=== PATIENT | female | born 1970 | race African-American/Black ===

== ENCOUNTER 2017-03-05 21:46 | Observation (INO) | payer BC ==
[~2017-03-05] VITALS: Ht 167.6 cm; Wt 100.4 kg
[2017-03-05] MEDS: SODIUM CHLOR 0.9% 1000 ML INJ 1,000 ML IV SCH (20:12)
[2017-03-05] MEDS: SODIUM CHLORIDE 0.9% FLUSH 10 ML FLUSH IV FLUSH SCH (21:00)
[~2017-03-05 21:46] MED LIST: ACETAMINOPHEN 325 MG TAB PO PRN; BISACODYL 10 MG SUPP RECTAL PRN; BUTA1CAP PO; BUTATAB6 PO; CARA1TAB6 PO; CLON0.2T PO; HYDR-3535 PO; NALOXONE HCL 0.4 MG/ML AMP IV PRN; NORV2.5T PO; PROT40TA PO; SENNOSIDES 8.6 MG TAB PO PRN; TOPA25TA8 PO; ZANA2CAP PO
[2017-03-05] MEDS: HYDROmorphone HCL PF 1 MG/ML VIAL IV PUSH PRN (22:09)
[2017-03-05 22:41] VITALS: BP 166/107; PULSE 72; RESP 16; TEMP 97.7; O2SAT 95
[2017-03-06] MEDS ORDERED: HYDROmorphone HCL PF 1 MG/ML VIAL IV PUSH ONE
[2017-03-06 00:42] VITALS: BP 145/92; PULSE 76; RESP 14; TEMP 98.1; O2SAT 97
[2017-03-06] MEDS: HYDROmorphone HCL PF 1 MG/ML VIAL IV PUSH PRN ×7 (02:07→22:16)
[2017-03-06] MEDS: ONDANSETRON HCL 4 MG/2 ML VIAL IVP PRN ×3 (02:11→22:15)
[2017-03-06 06:02] LABS: HEMATOCRIT 40.2 % (35.0-46.0); HEMO FLAGS DIFF FINAL; MEAN CELL VOLUME 84.4 FL (80.0-100.0); MEAN CORPUSCULAR HEMOGLOBIN 26.9 PG (27.0-34.0); MEAN CORPUSCULAR HGB CONC 31.9 % (32.0-36.0); NEUT % 77.9 % (16.0-70.0); PLATELET COUNT 419 TH/MM3 (150-450); RED BLOOD COUNT 4.76 MIL/MM3 (4.00-5.30); RED CELL DISTRIBUTION WIDTH 16.4 % (11.6-17.2); WHITE BLOOD COUNT 11.3 TH/MM3 (4.0-11.0)
[2017-03-06 06:03] LABS: AUTOMATED NEUTROPHIL # 8.7 TH/MM3 (1.8-7.7); BASOPHIL # 0.1 TH/MM3 (0-0.2); BASOPHIL % 0.5 % (0.0-2.0); LYMPH % 16.7 % (9.0-44.0); LYMPHOCYTE # 1.9 TH/MM3 (1.0-4.8); MONO % 4.9 % (0.0-8.0)
[2017-03-06 06:10] LABS: CHLORIDE 103 MEQ/L (98-107); POTASSIUM 3.6 MEQ/L (3.5-5.1); SODIUM (NA) 137 MEQ/L (136-145)
[2017-03-06] MEDS: SODIUM CHLOR 0.9% 1000 ML INJ 1,000 ML IV SCH ×2 (06:12→07:12)
[2017-03-06 06:15] LABS: ANION GAP 8 MEQ/L (5-15); BICARBONATE 26.2 MEQ/L (21.0-32.0); BLOOD UREA NITROGEN 7 MG/DL (7-18)
[2017-03-06 06:18] LABS: ALT (GPT) 22 U/L (10-53); AST (GOT) 19 U/L (15-37); GLOMERULAR FILTRATION RATE 90 ML/MIN (>89)
[2017-03-06 06:20] LABS: TOTAL BILIRUBIN ADULT 0.6 MG/DL (0.2-1.0)
[2017-03-06 06:21] LABS: ALKALINE PHOSPHATASE 109 U/L (45-117)
[2017-03-06 07:45] VITALS: BP 122/76; PULSE 78; RESP 18; TEMP 97.6; O2SAT 94
[2017-03-06] MEDS: SUCRALFATE 1 GM TAB PO SCH ×3 (07:55→14:36)
--- NOTE | 2017-03-06 07:59 | HHI.HP ---
[facility] Primary Care Physician Non-Staff Admission Diagnosis Diagnoses: Chief Complaint: abdominal razo and vomiting Travel History International Travel<30 Days: No Contact w/Intl Traveler <30 Da: No Traveled to Known Affected Are: No History of Present Illness 46 year old female with second episode for "pancreatitis" for unknown reason. Associated with severe nausea and vomiting and 10/10 abdominal pain which is not radiating. Better with zofran and dilaudid. No fevers and no bloody stool or emesis. Review of Systems Constitutional: DENIES: Diaphoretic episodes, Fatigue, Fever, Weight gain, Weight loss, Chills, Dizziness, Change in appetite, Night Sweats Endocrine: DENIES: Abnorml menstrual pattern, Heat/cold intolerance, Polydipsia , Polyuria, Polyphagia Eyes: DENIES: Blurred vision, Diplopia, Eye inflammation, Eye pain, Vision loss , Photosensitivity, Double Vision Ears, nose, mouth, throat: DENIES: Tinnitus, Hearing loss, Vertigo, Nasal discharge, Oral lesions, Throat pain, Hoarseness, Ear Pain, Running Nose, Epistaxis, Sinus Pain, Toothache, Odynophagia Respiratory: DENIES: Apneas, Cough, Snoring, Wheezing, Hemoptysis, Sputum production, Shortness of breath Cardiovascular: DENIES: Chest pain, Palpitations, Syncope, Dyspnea on Exertion , PND, Lower Extremity Edema, Orthopnea, Claudication Gastrointestinal: COMPLAINS OF: Abdominal pain, Nausea, Vomiting, DENIES: Black stools, Bloody stools, Constipation, Diarrhea, Difficulty Swallowing, Anorexia Genitourinary: DENIES: Abnormal vaginal bleeding, Dysmenorrhea, Dyspareunia, Sexual dysfunction, Urinary frequency, Urinary incontinence, Urgency, Hematuria , Dysuria, Nocturia, Vaginal discharge Musculoskeletal: DENIES: Joint pain, Muscle aches, Stiffness, Joint Swelling, Back pain, Neck pain Integumentary: DENIES: Abnormal pigmentation, Pruritus, Rash, Nail changes, Breast masses, Breast skin changes, Nipple discharge Hematologic/lymphatic: DENIES: Bruising, Lymphadenopathy Immunologic/allergic: DENIES: Eczema, Urticaria Neurologic: DENIES: Abnormal gait, Headache, Localized weakness, Paresthesias, Seizures, Speech Problems, Tremor, Poor Balance Psychiatric: DENIES: Anxiety, Confusion, Mood changes, Depression, Hallucinations, Agitation, Suicidal Ideation, Homicidal Ideation, Delusions Except as stated in HPI: all other systems reviewed are Neg Past Family Social History Past Medical History migraines pancreatitis Past Surgical History c/s GB Left shoulder Reported Medications reviewed in the EMR denies butalbital, lortab, norvasc Allergies: Coded Allergies: morphine (Unverified Allergy, Intermediate, ITCHING AND HIVES, 03/05/17) Active Ordered Medications reviewed in the EMR Family History son with Gastroparesis Mom breast ca father lung cancer Social History no tobacco , no etoh Physical Exam Vital Signs Vital Signs Date Time Temp Pulse Resp B/P Pulse Ox O2 Delivery O2 Flow Rate FiO2 03/06/17 07:45 97.6 78 18 122/76 94 03/06/17 00:42 98.1 76 14 145/92 97 03/05/17 22:41 97.7 72 16 166/107 95 Physical Exam GENERAL: This is a well-nourished, well-developed patient, vomiting SKIN: No rashes, ecchymoses or lesions. Cool and dry. HEAD: Atraumatic. Normocephalic. No temporal or scalp tenderness. EYES: Pupils equal round and reactive. Extraocular motions intact. No scleral icterus. No injection or drainage. ENT: Nose without bleeding, purulent drainage or septal hematoma. Throat without erythema, tonsillar hypertrophy or exudate. Uvula midline. Airway patent. NECK: Trachea midline. No JVD or lymphadenopathy. Supple, nontender, no meningeal signs. CARDIOVASCULAR: Regular rate and rhythm without murmurs, gallops, or rubs. RESPIRATORY: Clear to auscultation. Breath sounds equal bilaterally. No wheezes , rales, or rhonchi. GASTROINTESTINAL: Abdomen soft, diffusely tender, nondistended. hypoactive No hepato-splenomegaly, or palpable masses. No guarding. MUSCULOSKELETAL: Extremities without clubbing, cyanosis, or edema. No joint tenderness, effusion, or edema noted. No calf tenderness. Negative Homans sign bilaterally. NEUROLOGICAL: Awake and alert. Cranial nerves II through XII intact. Motor and sensory grossly within normal limits. Five out of 5 muscle strength in all muscle groups. Normal speech. Laboratory Laboratory Tests Test 03/06/17 05:19 White Blood Count 11.3 Red Blood Count 4.76 Hemoglobin 12.8 Hematocrit 40.2 Mean Corpuscular Volume 84.4 Mean Corpuscular Hemoglobin 26.9 Mean Corpuscular Hemoglobin 31.9 Concent Red Cell Distribution Width 16.4 Platelet Count 419 Mean Platelet Volume 10.0 Neutrophils (%) (Auto) 77.9 Lymphocytes (%) (Auto) 16.7 Monocytes (%) (Auto) 4.9 Eosinophils (%) (Auto) 0.0 Basophils (%) (Auto) 0.5 Neutrophils # (Auto) 8.7 Lymphocytes # (Auto) 1.9 Monocytes # (Auto) 0.6 Eosinophils # (Auto) 0.0 Basophils # (Auto) 0.1 CBC Comment DIFF FINAL Differential Comment Sodium Level 137 Potassium Level 3.6 Chloride Level 103 Carbon Dioxide Level 26.2 Anion Gap 8 Blood Urea Nitrogen 7 Creatinine 0.83 Estimat Glomerular Filtration 90 Rate Random Glucose 103 Calcium Level 9.1 Total Bilirubin 0.6 Aspartate Amino Transf 19 (AST/SGOT) Alanine Aminotransferase 22 (ALT/SGPT) Alkaline Phosphatase 109 Total Protein 8.5 Albumin 3.5 Lipase 410 Result Diagram: 03/06/1751803/06/[address] 03/05 unremarkable Course from [place] Assessment and Plan Problem List: (1) Pancreatitis ICD Code: K85.90 Status: Acute Plan: Cont Bowel rest Old records for [facility] in [place] Pain meds, antiemetics Mamie Bell MD Mar 06, 2017 07:58
[2017-03-06] MEDS: PANTOPRAZOLE SOD 40 MG DELAYED RELEASE TAB PO SCH (09:00)
[2017-03-06] MEDS: amLODIPine BESYLATE 5 MG TAB PO SCH (09:00)
[2017-03-06] MEDS: cloNIDine HCL 0.2 MG TAB PO SCH ×2 (09:00→22:16)
[2017-03-06] MEDS: PROMETHAZINE HCL 25 MG TAB PO SCH ×3 (09:00→21:00)
[2017-03-06] MEDS: SODIUM CHLORIDE 0.9% FLUSH 10 ML FLUSH IV FLUSH SCH ×2 (09:00→21:00)
[2017-03-06 12:00] VITALS: BP 118/78; PULSE 80; RESP 17; TEMP 97.4; O2SAT 93
[2017-03-06 16:00] VITALS: BP 109/67; PULSE 66; RESP 18; TEMP 97.5; O2SAT 99
[2017-03-06 20:23] VITALS: BP 109/72; PULSE 69; RESP 16; TEMP 97.5; O2SAT 99
[2017-03-07 00:09] VITALS: BP 120/76; PULSE 63; RESP 18; TEMP 97.9; O2SAT 98
[2017-03-07] MEDS: SODIUM CHLOR 0.9% 1000 ML INJ 1,000 ML IV SCH (02:12)
[2017-03-07] MEDS: PROMETHAZINE HCL 25 MG TAB PO SCH ×3 (03:42→15:04)
[2017-03-07] MEDS: ONDANSETRON HCL 4 MG/2 ML VIAL IVP PRN ×2 (04:17→12:06)
[2017-03-07] MEDS: HYDROmorphone HCL PF 1 MG/ML VIAL IV PUSH PRN ×4 (04:18→15:04)
[2017-03-07 08:00] VITALS: BP 98/66; PULSE 63; RESP 18; TEMP 97.4; O2SAT 98
[2017-03-07] MEDS: PANTOPRAZOLE SOD 40 MG DELAYED RELEASE TAB PO SCH (08:55)
[2017-03-07] MEDS: SUCRALFATE 1 GM TAB PO SCH ×2 (08:55→11:32)
[2017-03-07 09:00] VITALS: BP 140/89; PULSE 60; RESP 18
[2017-03-07] MEDS: SODIUM CHLORIDE 0.9% FLUSH 10 ML FLUSH IV FLUSH SCH (09:00)
[2017-03-07] MEDS: amLODIPine BESYLATE 5 MG TAB PO SCH (09:02)
[2017-03-07] MEDS: cloNIDine HCL 0.2 MG TAB PO SCH (09:02)
[2017-03-07] MEDS ORDERED: HYDR-3535 PO (10:40)
[2017-03-07] MEDS ORDERED: PROM25TA10 PO (10:40)
--- NOTE | 2017-03-07 10:41 | HHI.DCPOC ---
Discharge Care Plan Diagnosis: (1) Abdominal pain (2) Pancreatitis Goals to Promote Your Health * To prevent worsening of your condition and complications * To maintain your health at the optimal level Directions to Meet Your Goals Take your medications as prescribed Follow your dietary instruction Follow activity as directed Keep your appointments as scheduled Take your immunizations and boosters as scheduled If your symptoms worsen call your PCP, if no PCP go to Urgent Care Center or Emergency Room Smoking is Dangerous to Your Health. Avoid second hand smoke Call the 24-hour hour crisis hotline for domestic abuse at Mamie Bell MD Mar 07, 2017 10:40
[2017-03-07] MEDS ORDERED: oxyCODONE/ACETAMINOPHEN 5 MG/325 MG TAB PO PRN (10:45)
--- NOTE | 2017-03-07 11:11 | HHI.DS ---
Discharge Summary Admission Date Mar 05, 2017 at 21:49 Discharge Date: Mar 07, 2017 Admitting Diagnosis (1) Pancreatitis ICD Code: K85.90 - Acute pancreatitis without necrosis or infection, unspecified Status: Acute Procedures None Brief History - From Admission 46 year old female with second episode for "pancreatitis" for unknown reason. Associated with severe nausea and vomiting and 10/10 abdominal pain which is not radiating. Better with zofran and dilaudid. No fevers and no bloody stool or emesis. CBC/BMP: 03/06/17 0519 03/06/17 0519 Significant Findings Laboratory Tests Test 03/06/17 05:19 White Blood Count 11.3 TH/MM3 (4.0-11.0) Mean Corpuscular Hemoglobin 26.9 PG (27.0-34.0) Mean Corpuscular Hemoglobin Concent 31.9 % (32.0-36.0) Neutrophils (%) (Auto) 77.9 % (16.0-70.0) Neutrophils # (Auto) 8.7 TH/MM3 (1.8-7.7) Total Protein 8.5 GM/DL (6.4-8.2) Lipase 410 U/L (73-393) PE at Discharge GENERAL: This is a well-nourished, well-developed patient, in no apparent distress. CARDIOVASCULAR: Regular rate and rhythm without murmurs, gallops, or rubs. RESPIRATORY: Clear to auscultation. Breath sounds equal bilaterally. No wheezes , rales, or rhonchi. GASTROINTESTINAL: Abdomen soft, non-tender, nondistended. Normal active bowel sounds MUSCULOSKELETAL: Extremities without clubbing, cyanosis, or edema. NEURO: Alert & Oriented x4 to person, place, time, situation. Moves all ext x4 Hospital Course Patient seen and evaluated and treated for acute pancreatitis. Patient also appears to have excessive nausea and vomiting and perhaps gastroparesis. She did well with antiemetics and pain control. She was tolerating her diet time of discharge and recommended to follow-up with her outpatient services as well as her recent GI referral. Pt Condition on Discharge: Good Discharge Disposition: Discharge Home Discharge Time: <= 30 minutes Discharge Instructions Follow up Referrals: PCP Follow-up - 1 Week New Medications: Promethazine (Phenergan) 25 Mg Tablet 25 MG PO Q6H PRN for NAUSEA, #60 TAB Continued Medications: Amlodipine (Norvasc) 2.5 Mg Tab 2.5 MG PO DAILY for Blood Pressure Management, #30 TAB 0 Refills Isoxxrngdh-Jsngisdiutofr-Sjuhlmvx (Rcdibikgyt-Tiolpcidpqlnp-Lawdmmhw) 50-325-40 Mg Tab 1 TAB PO Q4H PRN for HEADACHE, #12 TAB 0 Refills Do not exceed 6 tablets/day. Clonidine (Clonidine) 0.2 Mg Tab 0.2 MG PO BID for Blood Pressure Management, #60 TAB 0 Refills Hydrocodone-Acetaminophen (Lortab) 10-325 Mg Tab 1 TAB PO Q6H PRN for PAIN, #20 TAB 0 Refills (This prescription has been renewed ) Pantoprazole (Protonix) 40 Mg Tab 40 MG PO DAILY for Reflux, #30 TAB 0 Refills Tizanidine (Zanaflex) 2 Mg Cap 2 MG PO TID for Muscle Spasm, CAP 0 Refills Topiramate (Topamax) 25 Mg Tab 50 MG PO DAILY PRN for HEADACHE, #60 TAB 0 Refills Discontinued Medications: Pgupvsmxag-Gfgvjgzpcohzr-Loldkhvq (Fioricet) 50-300-40 Mg Cap 1 CAP PO Q4H PRN for HEADACHE, CAP 0 Refills Sucralfate (Carafate) 1 Gm Tab 1 GM PO TID for Ulcer Prevention, #90 TAB 0 Refills On empty stomach Mamie Bell MD Mar 07, 2017 11:11
[2017-03-07 12:00] VITALS: BP 105/71; PULSE 52; RESP 18; TEMP 97.3; O2SAT 99
[2017-03-07] MEDS: SODIUM CHLORIDE 0.9% FLUSH 10 ML FLUSH IV FLUSH PRN ×2 (12:07→15:05)
[2017-03-07 15:34] VITALS: RESP 18
[2017-03-07] MEDS ORDERED: OXYC1TAB63 PO (15:40)
== END 2017-03-07 16:25 | disposition home or self-care (01) ==
LOC: PHEDDLT 21:46 → PH3A 21:49
PROVIDERS: ADMIT Hospitalist; ATTEND Hospitalist
DX: K85.90 Acute pancreatitis without necrosis or infection, unspecified (principal)
CPT/HCPCS: 74176; 74177; 80053; 80307; 81001; 83605; 83690; 83735; 84484; 84702; 85025; 85610; 85730; 96361; 96372; 96374; 96375; 96376; 99285; C9113; G0378; J0500; J1170; J2405; J7030; Q0169; Q9967